=== PATIENT | female | born 2005 | race Caucasian/White ===

== ENCOUNTER 2024-09-16 16:28 | Emergency (ER) | payer OTHER ==
[~2024-09-16] VITALS: Ht 160 cm; Wt 63.5 kg
[~2024-09-16 16:28] MED LIST: Amoxil400 MG/5 M PO
[2024-09-16 17:00] LABS: BASOPHILS ABSOLUTE AUTO 0.02 K/mm3 (0.00-0.23); BASOPHILS PERCENT AUTO 0 % (0-2); EOSINOPHILS ABSOLUTE AUTO 0.02 K/mm3 (0.00-0.68); EOSINOPHILS PERCENT AUTO 0 % (0-6); Hematocrit 37.3 % (33.0-51.0); Hemoglobin 13.3 g/dL (11.5-16.0); IMMATURE GRAN ABSOLUTE AUTO 0.02 K/mm3 (0.00-0.10); IMMATURE GRAN PERCENT AUTO 0 % (0-1); LYMPHOCYTES ABSOLUTE AUTO 2.09 K/mm3 (0.84-5.20); LYMPHOCYTES PERCENT AUTO 29 % (21-46); MONOCYTES ABSOLUTE AUTO 0.57 K/mm3 (0.16-1.47); MONOCYTES PERCENT AUTO 8 % (4-13); Mean Corpuscular HGB 31.8 pg (26.0-34.0); Mean Corpuscular HGB Conc 35.7 g/dL (31.5-36.5); Mean Corpuscular Volume 89 fL (80-100); Mean Platelet Volume 9.2 fL (9.1-12.4); NEUTROPHILS PERCENT AUTO 62 % (41-73); Platelet Count 374 K/mm3 (150-400); RDW Coefficient Variation 11.7 % (11.7-14.2); RDW Standard Deviation 37.7 fL (35.1-46.3); Red Blood Cell Count 4.18 M/mm3 (3.80-5.20); White Blood Cell Count 7.12 K/mm3 (4.00-11.30)
[2024-09-16 17:25] LABS: Albumin, Blood 4.3 g/dL (3.4-5.0); Albumin/Globulin Ratio 1.2 (0.8-1.8); Bilirubin, Total 0.4 mg/dL (0.1-1.0); Bun/Creatinine Ratio 8.8 (12.0-20.0); Calcium, Blood 8.8 mg/dL (8.5-10.1); Creatinine, Blood 0.57 mg/dL (0.40-1.00); Globulin, Blood 3.7 g/dL (2.2-4.0); Potassium, Blood 3.4 mmol/L (3.5-5.5)
[2024-09-16] MEDS ORDERED: Potassium Chloride 20 MEQ TabCR PO ONE (18:30)
[2024-09-16] MEDS ORDERED: Magnesium Oxide 400 MG Tab PO ONE (18:30)
[2024-09-16] MEDS ORDERED: NS 1,000 ML IV SCH (18:35)
[2024-09-16] MEDS ORDERED: Acetaminophen 500 MG Tab PO ONE (18:35)
[2024-09-16] MEDS ORDERED: Ibuprofen 600 MG Tab PO ONE (18:35)
[2024-09-16 19:45] VITALS: BP 125/82
== END 2024-09-16 19:50 | disposition home or self-care (01) ==
LOC: ER 16:28
PROVIDERS: Student in an Organized Health Care Education/Training Program
DX: R00.2 Palpitations (principal); Z79.2 Long term (current) use of antibiotics
CPT/HCPCS: 71046; 80053; 85025; 85379; 93005; 93010; 99285-25; A9270; J7030